=== PATIENT | male | born 1980 | race Two or more races ===

== ENCOUNTER 2016-10-01 15:25 | Emergency (ER) | payer SELFPAY ==
[2016-10-01] MEDS ORDERED: Multivitamin Inj 10 ML, Thiamine HCL 100 MG, Magnesium Sulfate 2 GM, Folic Acid 1 MG in... IV ONE (16:01)
--- NOTE | 2016-10-01 16:11 | ED Physician Chart ---
Chief Complaint/HPI - Patient Information Date Seen:: 10/01/16 Time Seen:: 16:00 Chief Complaint:: altered level of consciousness History of Present Illness:: Patient was found down in front of a supermarket. No further history available. Allergies:: Allergies Allergy/AdvReac Type Severity Reaction Status Date / Time No Known Allergies Allergy Verified 10/01/16 15:31 Vitals:: Vital Signs - 8 hr 10/01/16 15:31 Temp 98.1 F HR 84 RR 18 BP 122/62 O2 Sat % 98 Historian:: EMS Review:: Nurse's Note Reviewed Review of Systems - Review of Systems General/Constitutional: No fever, No chills Skin: No skin lesions Head: No headache Eyes: No loss of vision ENT: No earache Neck: No neck pain Cardio Vascular: No chest pain Pulmonary: No SOB GI: No nausea, No vomiting G/U: No dysuria Musculoskeletal: No bone or joint pain, No back pain Endocrine: No polyuria, No polydipsia Psychiatric: Other (unavailable) Hematopoietic: No bruising Allergic/Immuno: No urticaria Neurological: No syncope Past Medical History - Past Medical History Past Medical History: Other (HIV positive and hepatitis C) Family History: Other Social History: Alcohol, Other (probably is intoxicated) Surgical History: other (unavailable) Psychiatricy History: Other (unavailable) Medication: Reviewed Family Medical History - Family Member Mother History Unknown: Yes Physical Exam - Physical Examination General/Constitutional: Well-developed, well-nourished Other Gen/Cons comments:: Patient is disheveled and somnolent Head: Atraumatic Eyes: Lids, conjuctiva normal, PERRL Skin: Nl inspection, No rash, No skin lesions, No ecchymosis ENMT: External ears, nose nl Neck: No nuchal rigidity Respiratory: Nl effort/Exclusion, Clear to Auscultation, No Wheeze/Rhonchi/Rales Cardio Vascular: RRR GI: No tenderness/rebounding/guarding : No CVA tenderness Extremities: No tenderness or effusion Neuro/Psych: No focal deficits Misc: Normal back Labs/Radiology/EKG Results - Lab Results Results: Laboratory Results - last 24 hr 10/01/16 10/01/16 10/01/16 16:09 16:09 16:09 WBC 6.7 RBC 4.19 L Hgb 12.1 L Hct 36.9 L MCV 87.9 MCH 29.0 MCHC Differential 32.9 RDW 17.1 Plt Count 110 L D MPV 9.1 Neutrophils % 59.5 Lymphocytes % 26.1 Monocytes % 9.6 Eosinophils % 3.8 Basophils % 1.0 Sodium 133 L Potassium 3.9 Chloride 107 Carbon Dioxide 19.0 L Anion Gap 10.9 BUN 11 Creatinine 0.6 L Est GFR ( Amer) > 60.0 Est GFR (Non-Af Amer) > 60.0 BUN/Creatinine Ratio 18.3 Glucose 94 Calcium 8.9 Magnesium 2.2 Ethyl Alcohol 336 H ED Septic Shock - . Is Septic Shock (SBP<90, OR Lactate>4 mmol\L) present?: No - <6hrs of presentation: Vital Signs: Vital Signs - 8 hr 10/01/16 15:31 Temp 98.1 F HR 84 RR 18 BP 122/62 O2 Sat % 98 Reassessment (Disposition) - Reassessment Reassessment:: 0500 patient ambulated with normal a gait and had normal speech and wished to leave. Reassessment Condition:: Improved - Diagnosis Diagnosis:: Acute alcohol intoxication - Patient Disposition Discharge/Transfer:: Home Condition at Disposition:: Stable, Improved
[2016-10-01 16:15] LABS: % EOSINOPHILS 3.8 % (0.0-5.0); % LYMPHOCYTES 26.1 % (20.0-50.0); % MONOCYTES 9.6 % (2.0-10.0); % NEUTROPHILS 59.5 % (40.0-80.0); HEMATOCRIT 36.9 % (39.0-49.0); HEMOGLOBIN 12.1 gm/dL (13.2-17.3); MEAN CELL VOLUME 87.9 fl (80-99); MEAN CORPUSCULAR HGB CONC 32.9 pg (28.0-36.0); MEAN PLATELET VOLUME 9.1 fl; RED BLOOD COUNT 4.19 Mil/cmm (4.30-5.70); RED CELL DISTRIBUTION WIDTH 17.1 % (11.5-20.0); WHITE BLOOD COUNT 6.7 Th/cmm (4.8-10.8)
[2016-10-01 16:18] LABS: PLATELET COUNT 110 Th/cmm (150-400)
[2016-10-01 16:32] LABS: ANION GAP 10.9 (7.0-16.0); BUN - UREA NITROGEN 11 mg/dL (7-25); BUN/CREATININE RATIO 18.3; CALCIUM SERUM 8.9 mg/dL (8.6-10.3); CHLORIDE 107 mEq/L (98-107); CREATININE - SERUM 0.6 mg/dL (0.7-1.3); GLUCOSE 94 mg/dL (70-105); MAGNESIUM 2.2 mg/dL (1.9-2.7); POTASSIUM SERUM 3.9 mEq/L (3.5-5.1); SODIUM SERUM 133 mEq/L (136-145)
== END 2016-10-02 05:45 | disposition home or self-care (01) ==
LOC: ER 15:25
DX: F10.129 Alcohol abuse with intoxication, unspecified (principal)
CPT/HCPCS: 36415-UA; 80048-TC; 80320-TC; 83735-TC; 85025-TC; Z7502

== ENCOUNTER 2017-03-20 16:31 | Emergency (ER) | payer MEDICAID ==
--- NOTE | 2017-03-20 19:24 | ED Physician Chart ---
ED Chief Complaint/HPI - Patient Information Date Seen:: 03/20/17 Time Seen:: 19:19 Chief Complaint:: ETOH intoxication History of Present Illness:: 36 yo male had long history of alcohol abuse. Pt is screaming and uncooperative Allergies:: Allergies Allergy/AdvReac Type Severity Reaction Status Date / Time No Known Allergies Allergy Verified 10/01/16 15:31 Vitals:: Vital Signs - 8 hr 03/20/17 17:13 Temp 97.8 F HR 85 RR 16 BP 139/63 O2 Sat % 98 ED Past Medical History - Past Medical History Past Medical History: HTN, DM Social History: Smoker, Alcohol Family Medical History - Family Member Mother History Unknown: Yes ED Septic Shock - <6hrs of presentation: Vital Signs: Vital Signs - 8 hr 03/20/17 17:13 Temp 97.8 F HR 85 RR 16 BP 139/63 O2 Sat % 98
[2017-03-20 20:10] LABS: URINE BILIRUBIN NEGATIVE (NEGATIVE); URINE BLOOD NEGATIVE (NEGATIVE); URINE GLUCOSE (UA) NEGATIVE (NEGATIVE); URINE KETONE NEGATIVE (NEGATIVE); URINE LEUKOCYTE ESTERASE NEGATIVE (NEGATIVE); URINE MICROSCOPIC INDICATED? YES; URINE NITRATE NEGATIVE (NEGATIVE); URINE PH 5.5 (4.6 - 8.0); URINE PROTEIN NEGATIVE (NEGATIVE); URINE SOURCE RANDOM; URINE UROBILINOGEN 0.2 E.U./dL (0.2 - 1.0)
[2017-03-20 20:25] LABS: % BASOPHILS 0.4 % (0.0-2.0); % EOSINOPHILS 3.6 % (0.0-5.0); % LYMPHOCYTES 46.2 % (20.0-50.0); % MONOCYTES 5.7 % (2.0-10.0); % NEUTROPHILS 44.1 % (40.0-80.0); EOSINOPHILE ABSOLUTE 0.2 Th/cmm (0.1-0.4); HEMATOCRIT 40.4 % (41.0-60); HEMOGLOBIN 13.6 gm/dL (12-16); LYMPHOCYTE ABSOLUTE 2.9 Th/cmm (1.5-3.0); MEAN CELL VOLUME 86.5 fl (80-99); MEAN CORPUSCULAR HEMOGLOBIN 29.2 pg (26.0-30.0); MEAN CORPUSCULAR HGB CONC 33.7 pg (28.0-36.0); MEAN PLATELET VOLUME 7.9 fl; MONOCYTE ABSOLUTE 0.4 Th/cmm (0.3-1.0); NEUTROPHILE ABSOLUTE 2.7 Th/cmm (1.8-8.0); RED BLOOD COUNT 4.67 Mil/cmm (4.30-5.70); RED CELL DISTRIBUTION WIDTH 16.8 % (11.5-20.0); WHITE BLOOD COUNT 6.2 Th/cmm (4.8-10.8)
[2017-03-20 20:31] LABS: PLATELET COUNT 235 Th/cmm (150-400)
[2017-03-20 20:33] LABS: URINE BACTERIA NONE SEEN /hpf (NONE SEEN); URINE CLARITY CLEAR (CLEAR); URINE COLOR STRAW; URINE EPITHELIAL CELLS NONE SEEN /lpf (FEW); URINE RBC NONE SEEN /hpf (0-5); URINE WBC NONE SEEN /hpf (0-5)
[2017-03-20 20:44] LABS: ALB/GLOB RATIO 1.3 (1.0-1.8); ALBUMIN 4.2 gm/dL (4.2-5.5); ALKALINE PHOSPHATASE 74 U/L (34-104); ANION GAP 14.8 (7.0-16.0); BILIRUBIN,TOTAL 0.3 mg/dL (0.3-1.0); BUN - UREA NITROGEN 11 mg/dL (7-25); CALCIUM SERUM 8.4 mg/dL (8.6-10.3); CHLORIDE 108 mEq/L (98-107); CREATININE - SERUM 0.8 mg/dL (0.7-1.3); GFR AFRICAN-AMERICAN > 60.0 ml/min (>90); GFR NON AFRICAN-AMERICAN > 60.0 ml/min; GLUCOSE 102 mg/dL (70-105); POTASSIUM SERUM 3.8 mEq/L (3.5-5.1); SGOT 64 U/L (13-39); SGPT/ALT 61 U/L (7-52); SODIUM SERUM 143 mEq/L (136-145); TOTAL PROTEIN,SERUM 7.4 gm/dL (6.0-8.3)
[2017-03-20 20:46] LABS: AMPHETAMINE URINE NEGATIVE (NEGATIVE); BARBITURATES URINE NEGATIVE (NEGATIVE); BENZODIAZEPINES QUAL URINE NEGATIVE (NEGATIVE); CANNABINOID THC NEGATIVE (NEGATIVE); COCAINE METABOLITE QUAL URINE NEGATIVE (NEGATIVE); METHADONE URINE NEGATIVE (NEGATIVE); METHAMPHETAMINES QUAL URINE NEGATIVE (NEGATIVE); OPIATES (MORPHINE) QUAL. URINE NEGATIVE (NEGATIVE); PHENCYCLIDINE (PCP) URINE NEGATIVE (NEGATIVE); TRICYCLICS (TCA) QUAL. URINE NEGATIVE (NEGATIVE)
[2017-03-20] MEDS ORDERED: Sodium Chloride 0.9% 1,000 ML IV ONE (20:55)
== END 2017-03-21 06:00 | disposition home or self-care (01) ==
LOC: ER 16:31
DX: F10.129 Alcohol abuse with intoxication, unspecified (principal); E11.9 Type 2 diabetes mellitus without complications; I10 Essential (primary) hypertension; F17.200 Nicotine dependence, unspecified, uncomplicated
CPT/HCPCS: 36415-UA; 80053-TC; 80307; 80320-TC; 81001-TC; 85025-TC; J7030; Z7502

== ENCOUNTER 2017-03-21 10:30 | Inpatient (IN) | payer MEDICAID ==
[2017-03-21] MEDS ORDERED: Multivitamin Inj 10 ML, Thiamine HCL 100 MG, Magnesium Sulfate 2 GM, Folic Acid 1 MG in... IV ONE (10:39)
--- NOTE | 2017-03-21 10:46 | ED Physician Chart ---
ED Chief Complaint/HPI - Patient Information Date Seen:: 03/21/17 Time Seen:: 10:30 Chief Complaint:: Pt is intoxicated with ethanol History of Present Illness:: Brought in by ambulance because pt was found to be intoxicated with ethanol in the public. Pt was discharged earlier this morning by Dr. Gomez at this ER after he had been treated for acute ethanol intoxication. Labs and medical record by Dr. Gomez have been reviewed. Pt admits consuming ethanol after leaving ER. Pt otherwise appears to be comfortable and is in no distress. H & P are limited because pt is not fully cooperative. Pt has been informed about health risks related to chronic ethanol use and has been advised to quit. Pt has been encouraged to enroll in an alcohol rehab program. Pt acknowledges understanding. Allergies:: Allergies Allergy/AdvReac Type Severity Reaction Status Date / Time No Known Allergies Allergy Verified 10/01/16 15:31 Vitals:: see Nurse Note. Historian:: Patient, EMS Family MD/PCP:: unknown LMP:: N/A Review:: Nurse's Note Reviewed, Old Chart Reviewed ED Review of Systems - Review of Systems General/Constitutional: Other (Pt does not cooperate for ROS.) ED Past Medical History - Past Medical History Past Medical History: Other (Alcoholism, hepatitis C, ?ALD.) Family History: Other (Pt does not cooperate to provide info on FHx.) Social History: Other (Pt does not cooperate to provide info on SHx.) Surgical History: other (Pt does not cooperate to provide info on Surgical Hx.) Medication: Reviewed Family Medical History - Family Member Mother History Unknown: Yes ED Physical Exam - Physical Examination General/Constitutional: Awake, Well-developed, well-nourished, Alert, No distress Other Gen/Cons comments:: Breathes comfortably, speaks clearly, but is not cooperative. Head: Atraumatic Eyes: Lids, conjuctiva normal, PERRL, EOMI Skin: No rash, No ecchymosis, No lymphadenopathy ENMT: External ears, nose nl, Nasal exam nl, Oropharynx nl Neck: Nontender, Full ROM w/o pain, No nuchal rigidity, No mass, No stridor Respiratory: Nl effort/Exclusion, Clear to Auscultation, No Wheeze/Rhonchi/Rales Cardio Vascular: RRR, No murmur, gallop, rubs GI: No tenderness/rebounding/guarding, No organomegaly, Nondistended, No mass/ bruits Extremities: No edema Neuro/Psych: Alert/oriented (knows his name and that he is in hospital) Other Neuro/Psych comments:: Spontaneous movements noticed in all 4 extremities. Pt does not cooperate for full neurological exam. ED Labs/Radiology/EKG Results - Lab Results Results: Laboratory Tests 03/21/17 03/21/17 03/21/17 10:55 11:20 11:54 POC Glucose 109 H Urine Opiates Screen NEGATIVE Urine Methadone Screen NEGATIVE Ur Barbiturates Screen NEGATIVE Ur Tricyclics Screen NEGATIVE Ur Phencyclidine Scrn NEGATIVE Amphetamines Screen NEGATIVE U Methamphetamines Scrn NEGATIVE U Benzodiazepines Scrn NEGATIVE U Cocaine Metab Screen NEGATIVE U Cannabinoids Screen NEGATIVE Ethyl Alcohol 522 H ED Septic Shock - . Is Septic Shock (SBP<90, OR Lactate>4 mmol\L) present?: No ED Reassessment (Disposition) - Reassessment Reassessment:: 1217 Pt remains stable. No new findings. Lab results just became available and have been reviewed. Pt continues to recieve IV hydration. 1236 Case was discussed with Dr. Verduzco. Pt is to be admitted to [facility] under his care. Reassessment Condition:: Improved - Diagnosis Diagnosis:: Ethanol intoxication. - Patient Disposition Admitted to:: Med/Surg Admitting Medical Physician:: Jennifer Verduzco Time:: 12:40 Condition at Disposition:: Stable, Improved
[2017-03-21] MEDS ORDERED: Thiamine 100 mg/mL 2mL Vial ONE (11:06)
[2017-03-21] MEDS ORDERED: Magnesium Sulfate 1 gm/2 mL 2mL Vial IV ONE (11:06)
[2017-03-21] MEDS ORDERED: Multivitamin Inj 10 mL Vial IV ONE (11:07)
[2017-03-21 12:01] LABS: AMPHETAMINE URINE NEGATIVE (NEGATIVE); BARBITURATES URINE NEGATIVE (NEGATIVE); BENZODIAZEPINES QUAL URINE NEGATIVE (NEGATIVE); CANNABINOID THC NEGATIVE (NEGATIVE); COCAINE METABOLITE QUAL URINE NEGATIVE (NEGATIVE); METHADONE URINE NEGATIVE (NEGATIVE); METHAMPHETAMINES QUAL URINE NEGATIVE (NEGATIVE); OPIATES (MORPHINE) QUAL. URINE NEGATIVE (NEGATIVE); PHENCYCLIDINE (PCP) URINE NEGATIVE (NEGATIVE); TRICYCLICS (TCA) QUAL. URINE NEGATIVE (NEGATIVE)
[2017-03-21] MEDS: Multivitamin Inj 10 ML, Thiamine HCL 100 MG, Magnesium Sulfate 2 GM, Folic Acid 1 MG in... IV SCH (16:38)
--- NOTE | 2017-03-21 20:25 | History & Physical ---
ADMIT DATE: 03/21/2017 CHIEF COMPLAINT: Alcohol overdose. HISTORY OF PRESENT ILLNESS: The patient is a 36-year-old male with long history of ethanol dependency, homeless, presented to the Emergency Room with altered level of consciousness on arrival, evaluated by the physician. His workup significant for alcohol intoxication, admitted to the hospital, started IV banana bag, regular diet and Librium. The patient denies any chest pain, shortness of breath, fever or chills. PAST MEDICAL HISTORY: dependence. PAST SURGICAL HISTORY: No recent surgery. ALLERGIES: None. MEDICATIONS: Follow admission reconciliation. SOCIAL HISTORY: He is a chronic alcoholic, no drugs. FAMILY HISTORY: Noncontributory. REVIEW OF SYSTEMS: RENAL SYSTEM: No history of chronic renal disorder. CARDIOVASCULAR SYSTEM: No coronary artery disease. ENDOCRINE SYSTEM: No diabetes or thyroid problem. GASTROINTESTINAL SYSTEM: No upper or lower gastrointestinal bleed. NEUROLOGICAL SYSTEM: No seizure disorder. SKELETOMUSCULAR SYSTEM: No muscular dystrophy. HEMATOLOGIC SYSTEM: No bleeding tendencies. RESPIRATORY SYSTEM: No asthma. GENITOURINARY SYSTEM: No dysuria or hematuria. PHYSICAL EXAMINATION: GENERAL: He is awake, alert, oriented. VITAL SIGNS: Temperature is , heart rate 66, blood pressure 182/64. HEENT: Normocephalic. Pupils reacting equal to light and accommodation. Sclerae clear. NECK: Supple. Negative for lymphadenopathy, JVD or bruit. CHEST: Enter of air bilaterally normal. No rhonchi or wheezing. HEART: S1, S2 normal. No murmur or gallop. ABDOMEN: Soft, bowel sounds positive. EXTREMITIES: No edema. NEUROLOGIC: He is awake, alert, oriented. No focal motor or sensory deficits. Cranial nerves 2-12 intact. LABORATORY DATA: Urine toxicology is positive for ethanol. ASSESSMENT: 1. Alcohol intoxication. PLAN: The patient was admitted to the hospital under Dr. eVrduzco's service, started on banana bag, regular diet, Librium 25 p.o. q.4 p.r.n. for agitation. The patient is a full code. JOB# [id number]
[2017-03-22] MEDS: Multivitamin Inj 10 ML, Thiamine HCL 100 MG, Magnesium Sulfate 2 GM, Folic Acid 1 MG in... IV SCH (08:35)
== END 2017-03-22 13:20 | disposition left against medical advice (07) | DRG 770 ==
LOC: ER 10:30 → TELE 12:38
PROVIDERS: ADMIT Family Medicine; ATTEND Family Medicine
DX: F10.129 Alcohol abuse with intoxication, unspecified (principal); B19.20 Unspecified viral hepatitis C without hepatic coma; Z59.0 Homelessness; Z53.21 Procedure and treatment not carried out due to patient leaving prior to being seen by health care provider
CPT/HCPCS: 36415-UA; 80307; 80320-TC; 82948-90; J3411; J3475; J7030; X6226; X6598

== ENCOUNTER 2017-07-04 14:45 | Emergency (ER) | payer MEDICAID ==
[2017-07-04 15:23] LABS: % BASOPHILS 0.2 % (0.0-2.0); % EOSINOPHILS 0.3 % (0.0-5.0); % LYMPHOCYTES 10.1 % (20.0-50.0); % NEUTROPHILS 84.4 % (40.0-80.0); HEMATOCRIT 34.7 % (41.0-60); HEMOGLOBIN 11.9 gm/dL (12-16); LYMPHOCYTE ABSOLUTE 0.9 Th/cmm (1.5-3.0); MEAN CELL VOLUME 85.1 fl (80-99); MEAN CORPUSCULAR HGB CONC 34.1 pg (28.0-36.0); MEAN PLATELET VOLUME 8.4 fl; MONOCYTE ABSOLUTE 0.4 Th/cmm (0.3-1.0); NEUTROPHILE ABSOLUTE 7.6 Th/cmm (1.8-8.0); PLATELET COUNT 92 Th/cmm (150-400); RED BLOOD COUNT 4.08 Mil/cmm (4.30-5.70); RED CELL DISTRIBUTION WIDTH 14.7 % (11.5-20.0); WHITE BLOOD COUNT 8.9 Th/cmm (4.8-10.8)
[2017-07-04 15:39] LABS: ALB/GLOB RATIO 1.3 (1.0-1.8); ALBUMIN 4.4 gm/dL (4.2-5.5); ALKALINE PHOSPHATASE 85 U/L (34-104); BUN - UREA NITROGEN 13 mg/dL (7-25); CALCIUM SERUM 9.3 mg/dL (8.6-10.3); CARBON DIOXIDE 20.4 mEq/L (21.0-31.0); CHLORIDE 95 mEq/L (98-107); CREATININE - SERUM 0.6 mg/dL (0.7-1.3); GFR AFRICAN-AMERICAN > 60.0 ml/min (>90); GFR NON AFRICAN-AMERICAN > 60.0 ml/min; GLUCOSE 99 mg/dL (70-105); INR 0.88 (0.5-1.4); POTASSIUM SERUM 4.4 mEq/L (3.5-5.1); SGOT 96 U/L (13-39); SGPT/ALT 80 U/L (7-52); SODIUM SERUM 132 mEq/L (136-145); TOTAL PROTEIN,SERUM 7.9 gm/dL (6.0-8.3)
[2017-07-04 17:01] LABS: URINE BILIRUBIN SMALL (NEGATIVE); URINE BLOOD TRACE (NEGATIVE); URINE GLUCOSE (UA) NEGATIVE (NEGATIVE); URINE KETONE 15 mg/dL (NEGATIVE); URINE LEUKOCYTE ESTERASE NEGATIVE (NEGATIVE); URINE MICROSCOPIC INDICATED? YES; URINE NITRATE NEGATIVE (NEGATIVE); URINE PROTEIN 100 mg/dL (NEGATIVE); URINE SOURCE CLEAN C
[2017-07-04 17:12] LABS: URINE CLARITY HAZY (CLEAR); URINE COLOR ORANGE
[2017-07-04 17:16] LABS: URINE EPITHELIAL CELLS FEW /lpf (FEW); URINE RBC 0-2 /hpf (0-5); URINE WBC 0-2 /hpf (0-5)
[2017-07-04 17:17] LABS: URINE BACTERIA FEW /hpf (NONE SEEN)
[2017-07-04] MEDS ORDERED: Sodium Chloride 0.9% 1,000 ML IV ONE (17:19)
[2017-07-04 17:27] LABS: AMPHETAMINE URINE POSITIVE (NEGATIVE); BARBITURATES URINE NEGATIVE (NEGATIVE); BENZODIAZEPINES QUAL URINE NEGATIVE (NEGATIVE); CANNABINOID THC POSITIVE (NEGATIVE); COCAINE METABOLITE QUAL URINE NEGATIVE (NEGATIVE); METHADONE URINE NEGATIVE (NEGATIVE); METHAMPHETAMINES QUAL URINE POSITIVE (NEGATIVE); OPIATES (MORPHINE) QUAL. URINE NEGATIVE (NEGATIVE); PHENCYCLIDINE (PCP) URINE NEGATIVE (NEGATIVE); TRICYCLICS (TCA) QUAL. URINE NEGATIVE (NEGATIVE)
--- NOTE | 2017-07-04 18:43 | ED Physician Chart ---
ED Chief Complaint/HPI - Patient Information Date Seen:: 07/04/17 Time Seen:: 15:02 Chief Complaint:: INTOXICATION History of Present Illness:: THIS IS A 36 YO MALE WITH WHO HAS BEEN DRINKING AND USING DRUGS STATING THAT HE IS HOMELESS. HE DENIES HAVING ANY MEDICAL PROBLEMS AND DENIES HAVING ANY SURGERY. Allergies:: Allergies Allergy/AdvReac Type Severity Reaction Status Date / Time No Known Allergies Allergy Verified 03/21/17 10:59 Vitals:: Vital Signs - 8 hr 07/04/17 07/04/17 07/04/17 14:58 16:39 18:19 Temp 98.6 F HR 83 83 82 RR 16 18 16 BP 143/84 132/87 132/87 O2 Sat % 95 98 98 Historian:: Patient, EMS Review:: Nurse's Note Reviewed, Old Chart Reviewed ED Review of Systems - Review of Systems General/Constitutional: No fever, No chills, No weight loss, No weakness, No diaphoresis, No edema, No loss of appetite Skin: No skin lesions, No rash, No bruising Head: No headache, No light-headedness Eyes: No loss of vision, No pain, No diplopia ENT: No earache, No nasal drainage, No sore throat, No tinnitus Neck: No neck pain, No swelling, No thyromegaly, No stiffness, No mass noted Cardio Vascular: No chest pain, No palpitations, No PND, No orthopnea, No edema Pulmonary: No SOB, No cough, No sputum, No wheezing GI: No nausea, No vomiting, No diarrhea, No pain, No melena, No hematochezia, No constipation, No hematemesis G/U: No dysuria, No frequency, No hematuria Musculoskeletal: No bone or joint pain, No back pain, No muscle pain Endocrine: No polyuria, No polydipsia Psychiatric: Prior psych history (DRUG ABUSE), No prior psych history, No depression, No anxiety, No suicidal ideation Hematopoietic: No bruising, No lymphadenopathy Allergic/Immuno: No urticaria, No angioedema Neurological: No syncope, No focal symptoms, No weakness, No paresthesia, No headache, No seizure, No dizziness, No confusion, No vertigo ED Past Medical History - Past Medical History Obtainable: Yes Past Medical History: No significant medical hx Family History: None Social History: Non Smoker, Alcohol, Illicit Drug Use Surgical History: None Medication: Reviewed Family Medical History - Family Member Mother History Unknown: Yes ED Physical Exam - Physical Examination General/Constitutional: Awake, Well-developed, well-nourished, Alert, No distress, GCS 15, Non-toxic appearing, Ambulatory Head: Atraumatic Eyes: Lids, conjuctiva normal, PERRL, EOMI Skin: Nl inspection, No rash, No skin lesions, No ecchymosis, Well hydrated, No lymphadenopathy ENMT: External ears, nose nl, Nasal exam nl, Lips, teeth, gums nl Neck: Nontender, Full ROM w/o pain, No JVD, No nuchal rigidity, No bruit, No mass, No stridor Respiratory: Nl effort/Exclusion, Clear to Auscultation, No Wheeze/Rhonchi/Rales Cardio Vascular: RRR, No murmur, gallop, rubs, NL S1 S2 GI: No tenderness/rebounding/guarding, No organomegaly, No hernia, Normal BS's, Nondistended, No mass/bruits, No McBurney tenderness : No CVA tenderness Extremities: No tenderness or effusion, Full ROM, normal strength in all extremities, No edema, Normal digits & nails Neuro/Psych: Alert/oriented, DTR's symmetric, Normal sensory exam, Normal motor strength, Judgement/insight normal, Mood normal, Normal gait, No focal deficits Misc: Normal back, No paraspinal tenderness ED Labs/Radiology/EKG Results - Lab Results Results: Laboratory Tests 07/04/17 07/04/17 07/04/17 15:16 15:16 15:16 WBC 8.9 RBC 4.08 L Hgb 11.9 L Hct 34.7 L MCV 85.1 MCH 29.0 MCHC Differential 34.1 RDW 14.7 Plt Count 92 L MPV 8.4 Neutrophils % 84.4 H Lymphocytes % 10.1 L Monocytes % 5.0 Eosinophils % 0.3 Basophils % 0.2 PT 9.0 L INR 0.88 Sodium 132 L Potassium 4.4 Chloride 95 L Carbon Dioxide 20.4 L Anion Gap 21.0 H BUN 13 Creatinine 0.6 L Est GFR ( Amer) > 60.0 Est GFR (Non-Af Amer) > 60.0 BUN/Creatinine Ratio 21.7 Glucose 99 Calcium 9.3 Total Bilirubin 1.0 AST 96 H ALT 80 H Alkaline Phosphatase 85 Troponin I Total Protein 7.9 Albumin 4.4 Globulin 3.5 Albumin/Globulin Ratio 1.3 TSH Urine Source Urine Color Urine Clarity Urine pH Ur Specific [place] Urine Protein Urine Glucose (UA) Urine Ketones Urine Blood Urine Nitrate Urine Bilirubin Urine Urobilinogen Ur Leukocyte Esterase Urine RBC Urine WBC Ur Epithelial Cells Urine Bacteria Hyaline Casts Urine Mucus Urine Opiates Screen Urine Methadone Screen Ur Barbiturates Screen Ur Tricyclics Screen Ur Phencyclidine Scrn Amphetamines Screen U Methamphetamines Scrn U Benzodiazepines Scrn U Cocaine Metab Screen U Cannabinoids Screen Ethyl Alcohol 07/04/17 07/04/17 07/04/17 15:16 15:16 15:16 WBC RBC Hgb Hct MCV MCH MCHC Differential RDW Plt Count MPV Neutrophils % Lymphocytes % Monocytes % Eosinophils % Basophils % PT INR Sodium Potassium Chloride Carbon Dioxide Anion Gap BUN Creatinine Est GFR ( Amer) Est GFR (Non-Af Amer) BUN/Creatinine Ratio Glucose Calcium Total Bilirubin AST ALT Alkaline Phosphatase Troponin I 0.01 Total Protein Albumin Globulin Albumin/Globulin Ratio TSH 0.21 L Urine Source Urine Color Urine Clarity Urine pH Ur Specific [place] Urine Protein Urine Glucose (UA) Urine Ketones Urine Blood Urine Nitrate Urine Bilirubin Urine Urobilinogen Ur Leukocyte Esterase Urine RBC Urine WBC Ur Epithelial Cells Urine Bacteria Hyaline Casts Urine Mucus Urine Opiates Screen Urine Methadone Screen Ur Barbiturates Screen Ur Tricyclics Screen Ur Phencyclidine Scrn Amphetamines Screen U Methamphetamines Scrn U Benzodiazepines Scrn U Cocaine Metab Screen U Cannabinoids Screen Ethyl Alcohol 199 H 07/04/17 07/04/17 16:50 16:50 WBC RBC Hgb Hct MCV MCH MCHC Differential RDW Plt Count MPV Neutrophils % Lymphocytes % Monocytes % Eosinophils % Basophils % PT INR Sodium Potassium Chloride Carbon Dioxide Anion Gap BUN Creatinine Est GFR ( Amer) Est GFR (Non-Af Amer) BUN/Creatinine Ratio Glucose Calcium Total Bilirubin AST ALT Alkaline Phosphatase Troponin I Total Protein Albumin Globulin Albumin/Globulin Ratio TSH Urine Source CLEAN C Urine Color ORANGE Urine Clarity HAZY Urine pH 6.0 Ur Specific [place] >= 1.030 Urine Protein 100 H Urine Glucose (UA) NEGATIVE Urine Ketones 15 H Urine Blood TRACE Urine Nitrate NEGATIVE Urine Bilirubin SMALL H Urine Urobilinogen 1.0 Ur Leukocyte Esterase NEGATIVE Urine RBC 0-2 H Urine WBC 0-2 Ur Epithelial Cells FEW Urine Bacteria FEW Hyaline Casts 2-5 H Urine Mucus FEW Urine Opiates Screen NEGATIVE Urine Methadone Screen NEGATIVE Ur Barbiturates Screen NEGATIVE Ur Tricyclics Screen NEGATIVE Ur Phencyclidine Scrn NEGATIVE Amphetamines Screen POSITIVE H U Methamphetamines Scrn POSITIVE H U Benzodiazepines Scrn NEGATIVE U Cocaine Metab Screen NEGATIVE U Cannabinoids Screen POSITIVE H Ethyl Alcohol ED Assessment - Assessment General Assessment: ALCOHOL AND DRUG ABUSE ED Septic Shock - . Is Septic Shock (SBP<90, OR Lactate>4 mmol\L) present?: No - <6hrs of presentation: Vital Signs: Vital Signs - 8 hr 07/04/17 07/04/17 07/04/17 14:58 16:39 18:19 Temp 98.6 F HR 83 83 82 RR 16 18 16 BP 143/84 132/87 132/87 O2 Sat % 95 98 98 ED Reassessment (Disposition) - Reassessment Reassessment:: DRUG ABUSE ETOH ABUSE Reassessment Condition:: Improved - Diagnosis Diagnosis:: ETOH ABUSE DRUG ABUSE - Aftercare/Follow up Instructions Aftercare/Follow-Up Instructions:: Counseled pt regarding lab results/diagnosis & need follow up, Refer to Discharge Instructions, Counseled pt & family regarding lab results/diagnosis & need follow up - Patient Disposition Discharge/Transfer:: Home Condition at Disposition:: Improved ED Discharge Plan - Patient Disposition Admit/Discharge/Transfer: PT DISCHARGED HOME Condition at Disposition: Improved
== END 2017-07-04 19:45 | disposition home or self-care (01) ==
LOC: ER 14:45
DX: F10.10 Alcohol abuse, uncomplicated (principal); F19.10 Other psychoactive substance abuse, uncomplicated; Z59.0 Homelessness
CPT/HCPCS: 36415-UA; 80053-TC; 80307; 80320-TC; 81001-TC; 84443-TC; 84484-TC; 85025-TC; 85610-TC; J7030; Z7502

== ENCOUNTER 2017-09-05 15:05 | Emergency (ER) | payer MEDICAID ==
[2017-09-05] MEDS ORDERED: Multivitamin Tab PO ONE (15:40)
[2017-09-05] MEDS ORDERED: Multivitamin Tab ONE (15:50)
--- NOTE | 2017-09-05 15:52 | ED Physician Chart ---
ED Chief Complaint/HPI - Patient Information Date Seen:: 09/05/17 Time Seen:: 15:47 Chief Complaint:: etoh History of Present Illness:: 36 yr old male found down heavily intoxicated pt awake alert using vulgar language and joking around no vomiting headache or dizziness Allergies:: Allergies Allergy/AdvReac Type Severity Reaction Status Date / Time No Known Allergies Allergy Verified 03/21/17 10:59 Vitals:: Vital Signs - 8 hr 09/05/17 15:17 Temp 97.2 F HR 108 RR 23 BP 146/85 O2 Sat % 94 Historian:: Patient, EMS ED Review of Systems - Review of Systems General/Constitutional: No fever, No chills, No weight loss, No weakness, No diaphoresis, No edema, No loss of appetite Skin: No skin lesions, No rash, No bruising Head: No headache, No light-headedness Eyes: No loss of vision, No pain, No diplopia ENT: No earache, No nasal drainage, No sore throat, No tinnitus Neck: No neck pain, No swelling, No thyromegaly, No stiffness, No mass noted Cardio Vascular: No chest pain, No palpitations, No PND, No orthopnea, No edema Pulmonary: No SOB, No cough, No sputum, No wheezing GI: No nausea, No vomiting, No diarrhea, Pain, No melena, No hematochezia, No constipation, No hematemesis G/U: No dysuria, No frequency, No hematuria Musculoskeletal: No bone or joint pain, No back pain, No muscle pain Endocrine: No polyuria, No polydipsia Psychiatric: No prior psych history, No depression, No anxiety, No suicidal ideation Hematopoietic: No bruising, No lymphadenopathy Allergic/Immuno: No urticaria, No angioedema Neurological: No syncope, No focal symptoms, No weakness, No paresthesia, No headache, No seizure, No dizziness, No confusion, No vertigo Family Medical History - Family Member Mother History Unknown: Yes ED Physical Exam - Physical Examination General/Constitutional: Awake, Alert, GCS 15 Other Gen/Cons comments:: pt heavy etoh smell and very dark skin and unkempt Head: Atraumatic Eyes: Lids, conjuctiva normal, PERRL, EOMI Skin: Nl inspection, No rash, No skin lesions, No ecchymosis, Well hydrated, No lymphadenopathy ENMT: External ears, nose nl, Nasal exam nl, Lips, teeth, gums nl Neck: Nontender, Full ROM w/o pain, No JVD, No nuchal rigidity, No bruit, No mass, No stridor Respiratory: Nl effort/Exclusion, Clear to Auscultation, No Wheeze/Rhonchi/Rales Cardio Vascular: RRR, No murmur, gallop, rubs, NL S1 S2 GI: No tenderness/rebounding/guarding, No organomegaly, No hernia, Normal BS's, Nondistended, No mass/bruits, No McBurney tenderness : No CVA tenderness Extremities: No tenderness or effusion, Full ROM, normal strength in all extremities, No edema, Normal digits & nails Neuro/Psych: Alert/oriented, DTR's symmetric, Normal sensory exam, Normal motor strength, Judgement/insight normal, Mood normal, Normal gait, No focal deficits Misc: Normal back, No paraspinal tenderness ED Assessment - Assessment General Assessment: etoh intoxication and drug abuse ED Septic Shock - . Is Septic Shock (SBP<90, OR Lactate>4 mmol\L) present?: No - <6hrs of presentation: Vital Signs: Vital Signs - 8 hr 09/05/ 15:17 Temp 97.2 F HR 108 RR 23 BP 146/85 O2 Sat % 94 ED Reassessment (Disposition) - Reassessment Reassessment Condition:: Improved - Diagnosis Diagnosis:: etoh encepalopathy and drug abuse - Patient Disposition Discharge/Transfer:: Home
== END 2017-09-05 21:16 | disposition home or self-care (01) ==
LOC: ER 15:05
DX: F10.129 Alcohol abuse with intoxication, unspecified (principal); F19.10 Other psychoactive substance abuse, uncomplicated
CPT/HCPCS: Z7502